=== PATIENT | male | born 1965 | race Caucasian/White ===

== ENCOUNTER 2022-07-29 10:52 | Day surgery (SDC) | payer BC ==
[2022-07-29] MEDS ORDERED: Ringers Lactate 1,000 ML IV ONE (11:16)
[2022-07-29] MEDS ORDERED: LIDOCAINE 1% MPF 5 ML VIAL ONE (11:49)
[2022-07-29] MEDS ORDERED: propofoL 200 MG/20 ML VIAL IV ONE (11:49)
[2022-07-29 13:33] VITALS: BP 106/72; TEMP 97.1; O2SAT 100
== END 2022-07-29 12:40 | disposition home or self-care (01) ==
LOC: OR 10:52
PROVIDERS: ATTEND Surgery
PROC: 0DJD8ZZ Inspection of Lower Intestinal Tract, Via Natural or Artificial Opening Endoscopic (ICD-10-PCS; principal; 2022-07-29 12:30)
DX: Z12.11 Encounter for screening for malignant neoplasm of colon (principal); Z86.010 Personal history of colon polyps; K57.30 Diverticulosis of large intestine without perforation or abscess without bleeding; K64.8 Other hemorrhoids; K64.4 Residual hemorrhoidal skin tags; E78.00 Pure hypercholesterolemia, unspecified
CPT/HCPCS: 45378; J2704; J2001; J7120